=== PATIENT | female | born 1985 | race Caucasian/White ===

== ENCOUNTER 2016-05-08 17:12 | Inpatient (IN) | payer MEDICAID ==
[~2016-05-08] VITALS: Ht 154.9 cm; Wt 70.7 kg
[2016-05-08] MEDS ORDERED: OXYTOCIN 30 UNITS/LR 500 ML IV PRN (18:00)
[2016-05-08] MEDS ORDERED: METHYLERGONOVINE 0.2 MG INJ IM PRN (18:00)
[2016-05-08] MEDS ORDERED: IBUPROFEN 600 MG TAB PO PRN (18:00)
[2016-05-08] MEDS ORDERED: LACTATED RINGER'S 1,000 ML IV PRN (18:00)
[2016-05-08] MEDS ORDERED: ACETAMINOPHEN/CODEINE #3 TAB PO PRN (18:00)
[2016-05-08] MEDS ORDERED: MISOPROSTOL 200 MCG TAB PR PRN (18:00)
[2016-05-08] MEDS ORDERED: OXYTOCIN 30 UNITS/LR 500 ML IV SCH ×2 (18:00)
[2016-05-08] MEDS ORDERED: LIDOCAINE 1% (MPF) 30 ML INJ INJ PRN ×2 (18:00)
[2016-05-08] MEDS ORDERED: CARBOPROST 250 MCG INJ IM PRN (18:00)
[2016-05-08 18:08] LABS: ADD SCAN DIFF NO
[2016-05-08 18:12] LABS: BASOPHIL # 0.1 10^3/ul (0.0-0.1); BASOPHILS % 0.5 % (0.0-2.0); EOSINOPHILS # 0.1 10^3/ul (0.0-0.5); EOSINOPHILS % 0.5 % (0.0-7.0); HEMATOCRIT 36.7 % (37.0-47.0); HEMOGLOBIN 12.7 g/dl (12.0-16.0); LYMPHOCYTES # 2.1 10^3/ul (0.8-2.9); MEAN CORPUSCULAR HEMOGLOBIN 30.5 pg (29.0-33.0); MEAN CORPUSCULAR HGB CONC 34.6 g/dl (32.0-37.0); MEAN CORPUSCULAR VOLUME 88.2 fl (82.0-101.0); MEAN PLATELET VOLUME 11.4 fl (7.4-10.4); MONOCYTE # 0.6 10^3/ul (0.3-0.9); MONOCYTES % 4.8 % (0.0-11.0); NEUTROPHIL # 10.2 10^3/ul (1.6-7.5); NEUTROPHILS % 77.9 % (39.0-77.0); PLATELET COUNT 242 10^3/UL (140-415); RED BLOOD COUNT 4.16 10^6/ul (4.20-5.40); RED CELL DISTRIBUTION WIDTH 12.7 % (11.5-14.5); WHITE BLOOD COUNT 13.1 10^3/ul (4.8-10.8)
[2016-05-08 18:22] LABS: INR 0.9; PROTIME 12.1 Sec (12.2-14.2); PT RATIO 0.9
[2016-05-08 18:23] LABS: PARTIAL THROMBOPLASTIN TIME 26.9 Sec (25.0-35.0)
--- NOTE | 2016-05-08 18:34 | TRIAGE ---
OB Triage Datetime Report Generated by CPN: 05/08/2016 18:34 Datetime: 05/08/2016 17:20 Pain Assessment Pain Scale: 10 Pain Presence: Intermittent Pain Type: Contraction Pain Location: Abdomen; Back; Perineum Pain Goal: 10 Pain Relief Measures: Comfort Measures Vaginal Exam Dilatation (cms): 2.0 Effacement (%): 60 Station: -3 Exam By: ogbodu rn Cervix, Consistency: Soft Presentation 'A': Cephalic Datetime: 05/08/2016 17:15 Stage of : OB Triage Assessment Type: Triage Maternal Assessment Level of Consciousness: Fully Conscious DTR's/Clonus: DTRs 2+; No Clonus Headache: Denies Blurred Vision: No Respiratory Effort: Unlabored; Regular Rhythm; Equal Expansion Breath Sounds, Left: Clear and Equal Breath Sounds, Right: Clear and Equal Nausea/Vomiting: Denies RUQ Epigastric Pain: Denies Facial Edema: None Temperature Route: Axillary Fall Risk Assessment History of Falling: (0) No Secondary Diagnosis: (0) No Ambulatory Aid: (0) Bedrest/Nurse Assist IV Therapy: (0) No Gait: (0) Normal/Bedrest/Immobile Mental Status: (0) Oriented to Own Ability Fall Score: 0 Fall Risk Score Definition: No Risk: No action required Datetime: 05/08/2016 17:14 Time of Arrival: 05/08/2016 17:13 EGA: 40.6 Arrived By: Ambulatory Arrived From: Home Chief Complaint: uc's pain 9/10 (Annotations: Data stored by CPN on behalf of user) Movement: Present Contractions: Regular Contractions: 3-5 Vaginal Bleeding: None Vaginal Discharge: Denies Recent Sexual Intercouse: Denies Patient Complaints: Contractions; Back Pain Time Provider Notified: 05/08/2016 18:02 Provider Notified: DR. ALCARAZ Initial Plan: VENESSA CARDONA REACTIVE
[2016-05-08 19:00] VITALS: BP 130/79; PULSE 63; RESP 20; Ht 154.9 cm; Wt 70.7 kg
[2016-05-08] MEDS: LACTATED RINGER'S 1,000 ML IV SCH ×2 (19:03→20:23)
[2016-05-08 19:17] LABS: ALBUMIN 3.3 g/dl (3.3-4.9); CHLORIDE 107 mmol/L (97-110); SODIUM 138 mmol/L (135-144)
[2016-05-08 19:20] LABS: ALANINE AMINOTRANSFERASE 17 IU/L (13-69); ALKALINE PHOSPHATASE 185 IU/L (42-121); ANION GAP 16 (8-16); ASPARTATE AMINO TRANSFERASE 17 IU/L (15-46); BILIRUBIN,INDIRECT 0.3 mg/dl (0-1.1); BILIRUBIN,TOTAL 0.3 mg/dl (0.2-1.3); BLOOD UREA NITROGEN 8 mg/dl (7-20); CARBON DIOXIDE 19 mmol/L (21-31); CREATININE 0.62 mg/dl (0.44-1.00); TOTAL PROTEIN 6.6 g/dl (6.1-8.1)
[2016-05-08 19:21] LABS: CALCIUM 9.1 mg/dl (8.4-10.2); GLUCOSE 80 mg/dl (70-220)
[2016-05-08] MEDS ORDERED: FENTAnyl 2MCG/ML-ROPIV 0.2% 100 ML ONE (19:52)
[2016-05-08] MEDS ORDERED: morphine 2 MG INJ IV PRN ×2 (20:30)
[2016-05-08] MEDS ORDERED: KETOROLAC 30 MG INJ IV PRN (20:30)
[2016-05-08] MEDS ORDERED: ONDANSETRON 4 MG INJ IV PRN (20:30)
[2016-05-08] MEDS ORDERED: DIPHENHYDRAMINE 50 MG INJ IV PRN (20:30)
[2016-05-08] MEDS ORDERED: PROCHLORPERAZINE 10 MG INJ IV PRN (20:30)
[2016-05-08] MEDS ORDERED: NALOXONE (0.4 MG/ML) INJ IV PRN (20:30)
[2016-05-09] MEDS: FENTAnyl 2MCG/ML-ROPIV 0.2% 100 ML BAG EPI SCH ×2 (02:29→10:52)
[2016-05-09] MEDS: LACTATED RINGER'S 1,000 ML IV SCH ×3 (04:09→16:15)
[2016-05-09] MEDS ORDERED: MINERAL OIL LIGHT 10 ML VIAL TOP ONE (12:30)
[2016-05-09] MEDS ORDERED: LIDOCAINE 2%/EPI 30 ML INJ ONE (18:09)
[2016-05-09] MEDS ORDERED: morphine SULFATE/PF (10 MG/10 ML) INJ ONE (18:28)
[2016-05-09] MEDS ORDERED: CEFAZOLIN 2 GM/50 ML (PMX) 50 ML IVPB ONE (18:30)
[2016-05-09] MEDS ORDERED: METOCLOPRAMIDE 10 MG INJ ONE (18:35)
[2016-05-09] MEDS ORDERED: OXYTOCIN 30 UNITS/LR 500 ML IV ONE ×2 (18:35→19:14)
[2016-05-09] MEDS ORDERED: KETOROLAC 30 MG INJ ONE ×2 (18:35→19:46)
[2016-05-09] MEDS ORDERED: ONDANSETRON 4 MG INJ ONE (18:44)
[2016-05-09] MEDS ORDERED: PROPOFOL 20 ML ONE (18:49)
[2016-05-09] MEDS ORDERED: HYDROmorphONE (0.2 MG/ML) 10ML SYG IV PRN ×3 (19:00)
[2016-05-09] MEDS ORDERED: ONDANSETRON 4 MG INJ IV PRN ×2 (19:00→20:00)
[2016-05-09] MEDS ORDERED: DIPHENHYDRAMINE 50 MG INJ IV PRN ×2 (19:00→20:00)
[2016-05-09] MEDS ORDERED: MEPERIDINE 25 MG INJ IV PRN (19:00)
[2016-05-09] MEDS ORDERED: METOCLOPRAMIDE 10 MG INJ IV PRN (19:00)
[2016-05-09] MEDS ORDERED: MEPERIDINE 100 MG INJ ONE (19:17)
--- NOTE | 2016-05-09 19:43 | HP ---
Date/Time of Note Date/Time of Note LATE ENTRY DATE: 05/09/16 TIME: 19:39 OB - History Hx of Present Last Menstrual Period: Sep 04, 2015 Estimated Due Date: May 03, 2016 : 2 Para: 1 Care: Good Care Ultrasounds: Normal mid trimester US Obstetrical Complications: None Medical Complications: Other (previous C/S X 1 ) Past Family/Social History * Past Medical, Surgical, Family and Obstetric Histories reviewed from chart. Blood Type: A+ Rubella: not immune RPR/VDRL: Negative GBS Status: Negative HBsAG: Negative OB Admission Exam Vital Signs Vital Signs Vital Signs Date Time Temp Pulse Resp B/P Pulse Ox O2 Delivery O2 Flow Rate FiO2 05/08/16 19:00 98.5 63 20 130/79 98 Room Air Physical Exam HEENT: WNL Heart: Rhythm Normal Lungs: Clear, Equal Abdomen: WNL Extremities: Normal Reflexes: Normal Cervical Dilatation: 2cm Effacement: 50% Station: -3 Membranes: Intact Heart Rate: 140's Accelerations: Accelerations Present Decelerations: No Decelerations Varibility: Moderate Contractions on Admission: 6-10 Minutes Apart Date/Time Contractions Began: 05/08/2016 Frequency of Contractions: q 5 Duration: >45 seconds Intensity: Moderate Last 72 hours Lab Results CBC & BMP 05/08/16 17:50 Liver Function Test 05/08/16 17:50 Alanine Aminotransferase (ALT/SGPT) 17 Albumin 3.3 Alkaline Phosphatase 185 H Aspartate Amino Transf (AST/SGOT) 17 Direct Bilirubin 0.00 Total Protein 6.6 OB Assessment/Plan Other Assessment: term gestation previous C/S X 1 labor pains desires Other plan: will allow limited unprovoked ALISSA FRAZIER MD May 09, 2016 19:43
--- NOTE | 2016-05-09 19:44 | QN ---
Documentation Comment payient didnot have labor progress X 7 hours : discussed C/S with patient and agreed with C/S ALISSA FRAZIER MD May 09, 2016 19:44
--- NOTE | 2016-05-09 19:48 | OPR ---
Operative Report Planned Procedure Procedure date May 09, 2016 Procedure(s) repeat C/S Performed by: ALISSA FRAZIER MD Assisting provider: NICOLE CBAEZAS MD Anesthesiologist: RENE OSCAR MD Pre-procedure diagnosis term gestation previous C/S arrest of dilatation Anesthesia Type: epidural Procedure Description Under satisfactory anaesthesia a Pfannenstiel incision was made two fingerbreadth above and parallel to the symphysis of pubis around the previous scar and previous scar was removed Incision was extended laterally to the border of the Recti muscles on either sides. Incision was carried down with sharp and blunt dissection until fascia was reached. Anterior Recti muscle fascia was incised in mid portion and incision extended laterally to the border of skin incision. Fascia was mobilized from muscle superiorly and Recti muscles were from midline using sharp and blunt dissection. Peritoneum was visualized; Avoiding bowel and bladder it was incised . Incision was extended superiorly and inferiorly. Bladder blade was placed. Posterior peritoneum covering the lower segment of the uterus and lower segment of the uterus were incised.Low transverse uterine incision was made on lower segment of the uterus. Incision extended laterally to the border of Round Lig. on either sides and baby was delivered from OT. position . Amniotic fluid appeared clear. Cord blood was obtained and cord had 3 vessels . Placenta was delivered spontaneously and appeared intact and complete. Intrauterine cavity was rubbed with a laparotomy sponge. Uterine incision was closed in 2 layers using running stitches of No1 Monocryl. Hemostasis appeared secure. Ovaries and Fallopian tubes were within normal limits. Omental adhesions to anterior abdominal wall were released and ligated using 0 Vicryl stitch. Announcing needle, lap sponge and instrument count to be correct abdomen was closed in layers as follows: Peritoneum and Recti muscles with running stitches of 20 Vicryl. Fascia with running stitch of No 1 PDS. Subcutaneous tissue with running stitches of 20 Chromic and skin was closed using zelda. Patient tolerated the procedure well and was transferred to [facility] in good condition. Post-Procedure Post-procedure diagnosis S/P C/ Sand lysis of adhesions Findings: Live Baby omental adhesions to anterior abdominal wall Specimen removed: No Complications: None Pt Condition post procedure: stable Disposition: PACU Physician Certification I, the undersigned physician, hereby certify that I have discussed the procedure described in this consent form with this patient (or the patient's legal telesales representative), including: * The risk and benefits of the procedure; * Any adverse reactions that may reasonably be expected to occur; * Any alternative efficacious methods of treatment which may be medically viable ; * The potential problems that may occur during recuperation; * Potential for blood transfusion and associated risks/benefits; and * Any research or economic interest I may have regarding this treatment. I further certify that the patient/legally responsible person was encouraged to ask question and that all questions were answered. ALISSA FRAZIER MD May 09, 2016 19:48
[2016-05-09] MEDS ORDERED: HYDROmorphONE 1 MG/ML SYG IV PRN ×3 (20:00)
[2016-05-09] MEDS ORDERED: ACETAMINOPHEN 1000MG/100ML IV 100 ML IVPB ONE (20:00)
[2016-05-09] MEDS ORDERED: NALOXONE (0.4 MG/ML) INJ IV PRN (20:00)
[2016-05-09 21:46] LABS: ADD SCAN DIFF NO
[2016-05-09 21:47] LABS: ABNORMAL IP MESSAGE 1; BASOPHIL # 0.1 10^3/ul (0.0-0.1); BASOPHILS % 0.2 % (0.0-2.0); HEMATOCRIT 35.5 % (37.0-47.0); HEMOGLOBIN 11.9 g/dl (12.0-16.0); LYMPHOCYTES # 1.5 10^3/ul (0.8-2.9); LYMPHOCYTES % 6.1 % (15.0-51.0); MEAN CORPUSCULAR HEMOGLOBIN 30.2 pg (29.0-33.0); MEAN CORPUSCULAR HGB CONC 33.5 g/dl (32.0-37.0); MEAN CORPUSCULAR VOLUME 90.1 fl (82.0-101.0); MEAN PLATELET VOLUME 10.6 fl (7.4-10.4); MONOCYTE # 1.2 10^3/ul (0.3-0.9); MONOCYTES % 5.2 % (0.0-11.0); NEUTROPHIL # 20.7 10^3/ul (1.6-7.5); NEUTROPHILS % 87.6 % (39.0-77.0); PLATELET COUNT 199 10^3/UL (140-415); RED BLOOD COUNT 3.94 10^6/ul (4.20-5.40); RED CELL DISTRIBUTION WIDTH 13.1 % (11.5-14.5); WHITE BLOOD COUNT 23.6 10^3/ul (4.8-10.8)
[2016-05-09 22:02] LABS: INR 1.02; PROTIME 13.4 Sec (12.2-14.2)
[2016-05-09 22:03] LABS: PARTIAL THROMBOPLASTIN TIME 30.7 Sec (25.0-35.0)
[2016-05-09 22:05] LABS: ALBUMIN 2.5 g/dl (3.3-4.9)
[2016-05-09 22:06] LABS: POTASSIUM 4.2 mmol/L (3.5-5.1)
[2016-05-09 22:08] LABS: BILIRUBIN,INDIRECT 0.4 mg/dl (0-1.1); BILIRUBIN,TOTAL 0.4 mg/dl (0.2-1.3); CREATININE 0.69 mg/dl (0.44-1.00)
[2016-05-09 22:09] LABS: ALBUMIN/GLOBULIN RATIO 0.89; CALCIUM 8.3 mg/dl (8.4-10.2); TOTAL PROTEIN 5.3 g/dl (6.1-8.1); URIC ACID 5.6 mg/dl (3.1-7.9)
[2016-05-09 23:00] VITALS: BP 105/62; PULSE 101; RESP 20
[2016-05-09 23:30] VITALS: BP 110/55; PULSE 62; RESP 22
[2016-05-10] VITALS (8 sets, daily range): BP systolic 100–121; BP diastolic 60–78; PULSE 73–106; RESP 16–20
[2016-05-10] MEDS ORDERED: CARBOPROST 250 MCG INJ IM PRN (00:30)
[2016-05-10] MEDS ORDERED: METHYLERGONOVINE 0.2 MG INJ IM PRN (00:30)
[2016-05-10] MEDS ORDERED: MISOPROSTOL 200 MCG TAB PR PRN (00:30)
[2016-05-10] MEDS ORDERED: NA PHOSPHATE/BIPHOS 133 ML ENEMA PR PRN (00:30)
[2016-05-10] MEDS ORDERED: OXYTOCIN 30 UNITS/LR 500 ML IV PRN (00:30)
[2016-05-10] MEDS ORDERED: LANOLIN 7 GM TUBE TOP PRN (00:30)
[2016-05-10] MEDS: LACTATED RINGER'S 1,000 ML IV SCH ×3 (01:17→16:15)
[2016-05-10] MEDS: CLINDAMYCIN 300 MG CAP PO SCH ×4 (01:18→18:00)
[2016-05-10] MEDS: CEFAZOLIN 2 GM/50 ML (PMX) 50 ML IV SCH ×3 (01:18→16:14)
[2016-05-10] MEDS: KETOROLAC 30 MG INJ IV PRN ×2 (01:33→17:09)
[2016-05-10 07:39] LABS: ADD SCAN DIFF NO
[2016-05-10 07:50] LABS: BASOPHIL # 0.1 10^3/ul (0.0-0.1); BASOPHILS % 0.4 % (0.0-2.0); EOSINOPHILS % 0.2 % (0.0-7.0); HEMATOCRIT 31.2 % (37.0-47.0); HEMOGLOBIN 10.4 g/dl (12.0-16.0); LYMPHOCYTES # 2.3 10^3/ul (0.8-2.9); MEAN CORPUSCULAR HEMOGLOBIN 30.1 pg (29.0-33.0); MEAN CORPUSCULAR HGB CONC 33.3 g/dl (32.0-37.0); MEAN CORPUSCULAR VOLUME 90.2 fl (82.0-101.0); MEAN PLATELET VOLUME 11.4 fl (7.4-10.4); MONOCYTE # 0.7 10^3/ul (0.3-0.9); MONOCYTES % 4.4 % (0.0-11.0); NEUTROPHIL # 13.5 10^3/ul (1.6-7.5); NEUTROPHILS % 80.5 % (39.0-77.0); PLATELET COUNT 171 10^3/UL (140-415); RED BLOOD COUNT 3.46 10^6/ul (4.20-5.40); RED CELL DISTRIBUTION WIDTH 13.1 % (11.5-14.5); WHITE BLOOD COUNT 16.8 10^3/ul (4.8-10.8)
[2016-05-10 08:39] LABS: ADD UMIC YES; URINE BILIRUBIN (Dip) NEGATIVE (NEGATIVE); URINE BLOOD (Dip) 3+ (NEGATIVE); URINE COLOR YELLOW (YELLOW); URINE GLUCOSE (Dip) NEGATIVE (NEGATIVE); URINE KETONES (Dip) TRACE (NEGATIVE); URINE LEUKOCYTE ESTERASE (Dip) TRACE (NEGATIVE); URINE NITRITE (Dip) NEGATIVE (NEGATIVE); URINE TOTAL PROTEIN (Dip) TRACE (NEGATIVE); URINE UROBILINOGEN (Dip) 0.2 E.U./dL (0.1-1.0)
[2016-05-10] MEDS ORDERED: BISACODYL 10 MG SUPP PR ONE (09:00)
[2016-05-10 09:56] LABS: BACTERIA,URINE FEW
[2016-05-10] MEDS: SENNA/DOCUSATE NA (8.6MG/50MG) TAB PO SCH ×2 (10:31→22:05)
--- NOTE | 2016-05-10 15:36 | PN ---
Date/Time of Note Date/Time of Note DATE: 05/10/16 TIME: 15:34 Assessment/Plan VTE Prophylaxis VTE Prophylaxis Intervention: ambulation Lines/Catheters IV Catheter Type (from Nrsg): Peripheral IV Assessment/Plan Assessment/Plan S/P C/S POD # 1 will advance diet and ambulate Subjective 24 Hr Interval Summary no BM passing flatus Constitutional: BM, ambulates, flatus, improved, no complaints, urine output Pain Control: well controlled Exam/Review of Systems Vital Signs Vitals Vital Signs Date Time Temp Pulse Resp B/P Pulse Ox O2 Delivery O2 Flow Rate FiO2 05/10/16 12:16 92 21 05/10/16 12:05 98.9 96 18 108/62 05/10/16 08:00 Room Air Intake and Output 05/09/16 05/09/16 05/10/16 15:00 23:00 07:00 Intake Total 1900 ml 1600 ml 795 ml Output Total 1500 ml 1240 ml 450 ml Balance 400 ml 360 ml 345 ml Exam Free Text/Dictation abdomen: soft BS + Incision: covered urine is clear Constitutional: alert, oriented, well developed Psych: nl mood/affect, no complaints Head: atraumatic, normocephalic Eyes: EOMI, nl conjunctiva, nl lids, nl sclera ENMT: mucosa pink and moist, nl external ears & nose, nl lips & teeth, nl nasal mucosa & septum Neck: non-tender, supple Respiratory: clear to auscultation, normal air movement Cardiovascular: nl pulses, regular rate and rhythm Gastrointestinal: nl liver, spleen, non-tender, soft Musculoskeletal: nl extremities to inspection, nl gait and stance Extremities: normal pulses Neurological: PRACTICE COORDINATOR II-XII intact, nl mental status, nl speech, nl strength Skin: nl turgor, rash or lesions Lymph: nl lymph nodes Results Result Diagram: 05/10/16 0650 05/09/16 2138 ALISSA FRAZIER MD May 10, 2016 15:36
[2016-05-10] MEDS ORDERED: ACETAMINOPHEN/CODEINE #3 TAB PO PRN (20:00)
[2016-05-10] MEDS: IBUPROFEN 800 MG TAB PO SCH (22:05)
[2016-05-11] MEDS: LACTATED RINGER'S 1,000 ML IV SCH ×3 (00:15→16:15)
[2016-05-11] MEDS: CLINDAMYCIN 300 MG CAP PO SCH ×4 (00:24→17:34)
[2016-05-11] MEDS: OXYCODONE/ACETAMINOPHEN (5/325) TAB PO PRN ×3 (03:51→20:11)
[2016-05-11 03:57] VITALS: BP 136/89; PULSE 76; RESP 20
[2016-05-11] MEDS: IBUPROFEN 800 MG TAB PO SCH ×3 (06:31→21:45)
[2016-05-11 07:41] LABS: ADD SCAN DIFF NO
[2016-05-11 07:47] LABS: BASOPHILS % 0.3 % (0.0-2.0); EOSINOPHILS % 0.2 % (0.0-7.0); HEMOGLOBIN 9.4 g/dl (12.0-16.0); LYMPHOCYTES # 1.5 10^3/ul (0.8-2.9); LYMPHOCYTES % 11.2 % (15.0-51.0); MEAN CORPUSCULAR HEMOGLOBIN 30.4 pg (29.0-33.0); MEAN CORPUSCULAR HGB CONC 33.6 g/dl (32.0-37.0); MEAN CORPUSCULAR VOLUME 90.6 fl (82.0-101.0); MEAN PLATELET VOLUME 11.2 fl (7.4-10.4); MONOCYTE # 0.6 10^3/ul (0.3-0.9); MONOCYTES % 4.1 % (0.0-11.0); NEUTROPHIL # 11.4 10^3/ul (1.6-7.5); NEUTROPHILS % 83.5 % (39.0-77.0); PLATELET COUNT 184 10^3/UL (140-415); RED BLOOD COUNT 3.09 10^6/ul (4.20-5.40); RED CELL DISTRIBUTION WIDTH 13.5 % (11.5-14.5); WHITE BLOOD COUNT 13.7 10^3/ul (4.8-10.8)
[2016-05-11 08:30] VITALS: BP 110/67; PULSE 87; RESP 16
[2016-05-11] MEDS: SENNA/DOCUSATE NA (8.6MG/50MG) TAB PO SCH ×2 (10:54→20:11)
[2016-05-11 16:00] VITALS: BP 109/73; PULSE 84; RESP 18
[2016-05-11] MEDS ORDERED: INFLUENZA VIRUS VACCINE 0.5 ML (DISPENSING) IM* ONE (16:00)
[2016-05-11 20:10] VITALS: BP 130/79; RESP 19
--- NOTE | 2016-05-11 23:38 | DS ---
Date/Time of Note Date/Time of Note home next day DATE: 05/11/16 TIME: 23:36 Obstetrical Discharge Record Final Diagnosis Final Diagnosis: Term delivered Other Final Diagnosis S/P C/S Section Section: Repeat (unsuccesfull ) Complications Other (previous C/S X 1 ) Condition on Discharge Physical Assessment Last Vitals: see nurses notes Voiding: Yes Bowel Movement: Yes Breast: Soft, non-tender, Filling Fundus: Firm Abdomen and Incision: soft BS + incision: healing Episiotomy: NA Calf Tenderness: No Patient Condition: Good ALISSA FRAZIER MD May 11, 2016 23:37
--- NOTE | 2016-05-11 23:40 | DS ---
Date/Time of Note Date/Time of Note DATE: 05/11/16 TIME: 23:38 Discharge Summary Admission/Discharge Info Admit Date/Time May 08, 2016 at 18:00 Discharge Date/Time 05/12/2016 Final Diagnosis S/P C/ S Patient Condition: Good Procedures repeat C/S Hx of Present Illness 30 y/o female had unsuccessful and repeat C/S Hospital Course uncomplicated Follow-up Plan 3-4 days in clinic for F/U and staple removal Pending Labs Laboratory Tests Test 05/11/16 07:09 White Blood Count 13.710^3/ul (4.8-10.8) Red Blood Count 3.0910^6/ul (4.20-5.40) Hemoglobin 9.4g/dl (12.0-16.0) Hematocrit 28.0% (37.0-47.0) Mean Corpuscular Volume 90.6fl (82.0-101.0) Mean Corpuscular Hemoglobin 30.4pg (29.0-33.0) Mean Corpuscular Hemoglobin Concent 33.6g/dl (32.0-37.0) Red Cell Distribution Width 13.5% (11.5-14.5) Platelet Count 15479^3/UL (140-415) Mean Platelet Volume 11.2fl (7.4-10.4) Neutrophils % 83.5% (39.0-77.0) Lymphocytes % 11.2% (15.0-51.0) Monocytes % 4.1% (0.0-11.0) Eosinophils % 0.2% (0.0-7.0) Basophils % 0.3% (0.0-2.0) Nucleated Red Blood Cells % 0.0/100WBC (0.0-0.0) Neutrophils # 11.410^3/ul (1.6-7.5) Lymphocytes # 1.510^3/ul (0.8-2.9) Monocytes # 0.610^3/ul (0.3-0.9) Eosinophils # 0.010^3/ul (0.0-0.5) Basophils # 0.010^3/ul (0.0-0.1) Nucleated Red Blood Cells # 0.010^3/ul (0.0-0.0) ALISSA FRAZIER MD May 11, 2016 23:39
--- NOTE | 2016-05-11 23:41 | PD.PPDC ---
CLINICAL STATISTICS MANAGER Discharge Instruction Provider Information Physician Information 30 y/o female haad unsuccessful and repeat C/S Diagnosis Final Diagnosis: S/P C/S Condition Patient Condition: Good Diet Diet: Resume Regular Diet Activity/Restrictions Activity: June Shower Restrictions: No Exercising No Lifting Return to Work or School: July 15, 2016 Follow-up Follow-up with Physician: 3, 4, Day/Days (in clinic for staple removal ) Return to clinic for BUSINESS ENGLISH INSTRUCTOR Instructions: Fever greater than 101 Chills OB Instructions: Breast Tenderness Depression Surgical Instructions: Incisional Drainage Incisional Redness ALISSA FRAZIER MD May 11, 2016 23:41
[2016-05-11] MEDS ORDERED: IBUP800T25 PO (23:42)
[2016-05-11] MEDS ORDERED: Oxycodone/Acetamin (5/325) PO (23:42)
[2016-05-12] MEDS: CLINDAMYCIN 300 MG CAP PO SCH ×3 (00:10→11:35)
[2016-05-12] MEDS: LACTATED RINGER'S 1,000 ML IV SCH (00:15)
[2016-05-12] MEDS: OXYCODONE/ACETAMINOPHEN (5/325) TAB PO PRN ×3 (03:02→15:09)
[2016-05-12 04:06] VITALS: BP 117/58; PULSE 76; RESP 18
[2016-05-12] MEDS: IBUPROFEN 800 MG TAB PO SCH ×2 (06:31→13:46)
[2016-05-12 07:10] LABS: ADD SCAN DIFF NO
[2016-05-12 07:15] LABS: BASOPHIL # 0.1 10^3/ul (0.0-0.1); BASOPHILS % 0.5 % (0.0-2.0); EOSINOPHILS # 0.3 10^3/ul (0.0-0.5); EOSINOPHILS % 2.7 % (0.0-7.0); HEMATOCRIT 27.2 % (37.0-47.0); HEMOGLOBIN 9.1 g/dl (12.0-16.0); LYMPHOCYTES # 2.6 10^3/ul (0.8-2.9); LYMPHOCYTES % 24.8 % (15.0-51.0); MEAN CORPUSCULAR HEMOGLOBIN 30.2 pg (29.0-33.0); MEAN CORPUSCULAR HGB CONC 33.5 g/dl (32.0-37.0); MEAN CORPUSCULAR VOLUME 90.4 fl (82.0-101.0); MEAN PLATELET VOLUME 10.5 fl (7.4-10.4); MONOCYTE # 0.4 10^3/ul (0.3-0.9); MONOCYTES % 4.1 % (0.0-11.0); NEUTROPHIL # 7.2 10^3/ul (1.6-7.5); NEUTROPHILS % 67.3 % (39.0-77.0); PLATELET COUNT 199 10^3/UL (140-415); RED BLOOD COUNT 3.01 10^6/ul (4.20-5.40); RED CELL DISTRIBUTION WIDTH 13.3 % (11.5-14.5); WHITE BLOOD COUNT 10.6 10^3/ul (4.8-10.8)
[2016-05-12 08:12] VITALS: BP 119/67; PULSE 79; RESP 18
[2016-05-12] MEDS: SENNA/DOCUSATE NA (8.6MG/50MG) TAB PO SCH (08:27)
[2016-05-12] MEDS ORDERED: MEASLES,MUMPS,RUBELLA VACCINE INJ SC* ONE (09:00)
[2016-05-12] MEDS ORDERED: DIPHTH/TET/ACEL PERTUSS (ADULT) 0.5 ML VIAL IM* ONE (09:00)
[2016-05-12 16:00] VITALS: BP 112/71; PULSE 64; RESP 18
[2016-05-13] MEDS ORDERED: INFLUENZA VIRUS VACCINE 0.5 ML (DISPENSING) IM* ONE (09:00)
--- NOTE | 2016-05-13 11:04 | PN ---
Date/Time of Note Date/Time of Note DATE: 05/10/16 TIME: 11:01 Anesthesia note A 30 year female s/p c section. pod #1 . pt is doing well no N/V, headache, itching. back is clean. care per process engineering manager Assessment/Plan VTE Prophylaxis VTE Prophylaxis Intervention: ambulation Lines/Catheters IV Catheter Type (from Nrs): Peripheral IV Exam/Review of Systems Vital Signs Vitals Vital Signs Date Time Temp Pulse Resp B/P Pulse Ox O2 Delivery O2 Flow Rate FiO2 05/12/16 16:00 97.9 64 18 112/71 Room Air 05/10/16 21:30 96 21 Results Result Diagram: 05/12/16 0640 05/09/16 2138 RENE OSCAR MD May 13, 2016 11:03
== END 2016-05-12 16:55 | disposition home or self-care (01) | DRG 766 ==
LOC: L-D 17:12 → OBT 17:12 → L-D 18:00 → OBT 18:00 → L-D 05-09 18:18 → PP1 05-09 22:49
PROVIDERS: ADMIT Obstetrics & Gynecology; ATTEND Obstetrics & Gynecology
PROC: 10D00Z1 Extraction of Products of Conception, Low, Open Approach (ICD-10-PCS; principal; 2016-05-09 18:30)
DX: O34.211 Maternal care for low transverse scar from previous cesarean delivery (principal); O48.0 Post-term pregnancy; Z3A.40 40 weeks gestation of pregnancy; Z37.0 Single live birth
CPT/HCPCS: 36415; 62319; 80053; 81001; 81003; 84560; 85025; 85384; 85610; 85730; 86592; 86850; 86900; 86901; 87340; 90686; 90715; 94760; 96372; 99464; G0463; J0131; J0690; J1170; J1200; J1885; J2175; J2274; J2405; J2590; J2765; J3010; J7120